=== PATIENT | female | born 1950 | race Caucasian/White ===

== ENCOUNTER → 2017-05-02 | Outpatient (CLI) | payer MEDICARE, BC | END | disposition home or self-care (01) | LOC: KCIC MAMMO 14:09 | DX: Z12.31 Encounter for screening mammogram for malignant neoplasm of breast (principal) | CPT/HCPCS: 77063; 77067 ==

== ENCOUNTER → 2017-11-29 | Outpatient (CLI) | payer BC, MEDICARE ==
--- NOTE | 2017-11-29 12:45 | KCIC ---
MRI Brain without contrast History: Unsteady gait, essential tremors Technique: Multiplanar, multisequential noncontrast MR imaging was performed of the brain. Contrast: None Comparison: May 07, 2011 Findings: There is no evidence of recent infarct or cytotoxic edema. The ventricles, sulci, and cisterns are within normal limits in size and configuration. There is no significant midline shift, intraaxial mass effect, or focal abnormal extra-axial fluid collection. There is multifocal overall mild to moderate T2 and FLAIR hyperintense abnormality of the supratentorial, bilaterally, somewhat increased in the interval such as of the bilateral periatrial white matter and centrum semiovale. There is preservation of the major intracranial flow-voids at the skull base. The mastoid air cells are aerated. The cerebellar tonsils are normal in location. There is no significant abnormality of the pineal gland or pituitary gland. Paranasal sinuses are overall aerated. There is preserved marrow signal of the clivus. Impression: 1. There is no intracranial mass effect or evidence of recent infarct. There is multifocal T2 and FLAIR hyperintense signal abnormality of the supratentorial white matter somewhat progressed since 2011, nonspecific findings which may be due to chronic microvascular ischemic disease in a patient this age especially if risk factors such as hypertension or diabetes, less commonly associated with inflammatory demyelinating disease in a patient this age. Electronically signed by: Jimmy Perales MD (11/29/2017 12:41 PM) [id number]
== END | disposition home or self-care (01) ==
LOC: KCIC MRI 11:14
PROVIDERS: ATTEND Psychiatry & Neurology Neurology with Special Qualifications in Child Neurology
DX: G25.0 Essential tremor (principal); R26.81 Unsteadiness on feet
CPT/HCPCS: 70551

== ENCOUNTER → 2020-07-15 | Outpatient (CLI) | payer MEDICARE ==
--- NOTE | 2020-07-15 14:05 | KCIC ---
Bilateral diagnostic digital mammograms with 3-D tomosynthesis: Reason for examination: Left breast lumps. Comparison is made to previous studies dated 05/02/2017 and 07/01/2015. Bilateral mammograms in CC and oblique projections were obtained with 2-D imaging and 3-D tomosynthes is imaging on a [employer] unit and reviewed on the workstation. Interpretation was made with the benefit of CAD. The skin and nipples show no abnormalities. No abnormal axillary lymph nodes are seen. The breast par enchyma is predominantly fatty. (Breast density: Category A.) There appears to be a cluster of microc alcifications in the lateral left breast at mid depth seen best on CC view but probably at the 4:00 B position. Further evaluation with stereotactic biopsy is recommended. There are no other dominant ma sses, suspicious calcifications or architectural distortion. Impression: Clustered microcalcifications laterally in the left breast at mid depth at approximately the 4:00 B p osition. Further evaluation with stereotactic biopsy is recommended. BI-RADS Category 4: Suspicious. These findings have been discussed with the patient and a message was left on the answering machine f or Dr. Mendosa's diploma medical assistant about these findings on 07/25/2020 at 2:00 PM. "Our facility is accredited by the [employer] Mammography [employer]." This patient's information has been entered into a reminder system for the patient to be notified wit h the results of her examination and a target date for the next mammogram. Electronically signed by: Darcy Bahena MD (07/15/2020 2:02 PM) [id number]
== END ==
LOC: KCIC MAMMO 09:55
PROVIDERS: ATTEND Family Medicine
DX: R92.0 Mammographic microcalcification found on diagnostic imaging of breast (principal); N63.20 Unspecified lump in the left breast, unspecified quadrant
CPT/HCPCS: 77066; G0279; 77062

== ENCOUNTER → 2020-10-29 | Outpatient (CLI) | payer MEDICARE ==
--- NOTE | 2020-10-29 11:38 | RAD ---
DATE: 10/29/2020 EXAM: DIGITAL DIAGNOSTIC LT, BREAST LEFT HISTORY: Upper outer left breast pain, probably benign calcifications in the left breast COMPARISON: 08/06/2020, 07/15/2020, 11/29/2017 This study was interpreted with the benefit of Computerized Aided Detection (CAD). Breast Density: SCATTERED The breast parenchyma shows scattered fibroglandular densities. Breast parenchyma level B. FINDINGS: Mammogram: No suspicious calcifications, suspicious mass, or architectural distortion in the left breast. Ultrasound: Ultrasound of the left breast in the area of pain at 1:00 7 cm from the nipple was performed. There is no cyst or mass in the area of concern. IMPRESSION: No evidence of malignancy. Recommend 6 month follow-up left breast mammogram for probably benign calcifications seen on 07/15/2020 and 08/06/2020. BI-RADS CATEGORY: 3 PROBABLY BENIGN FINDING(S)-SHORT INTERVAL FOLLOW-UP SUGGESTED RECOMMENDED FOLLOW-UP: 6M 6 MONTH FOLLOW-UP PQRS compliance statement: Patient information was entered into a reminder system with a target due date for the next mammogram. Mammography is a sensitive method for finding small breast cancers, but it does not detect them all and is not a substitute for careful clinical examination. A negative mammogram does not negate a clinically suspicious finding and should not result in delay in biopsying a clinically suspicious abnormality. "Our facility is accredited by the [employer] Mammography [employer]."
== END ==
LOC: MAMMO 09:27
PROVIDERS: ATTEND Family Medicine
DX: R92.8 Other abnormal and inconclusive findings on diagnostic imaging of breast (principal)
CPT/HCPCS: 76641; 77065